=== PATIENT | male | born 1995 | race African-American/Black ===

== ENCOUNTER 2021-07-14 16:53 | Emergency (ER) | payer SELFPAY ==
[~2021-07-14] VITALS: Ht 172.7 cm; Wt 93.0 kg
[2021-07-14] MEDS ORDERED: IBUP-2029 MT (18:49)
[2021-07-14] MEDS ORDERED: IBUPROFEN 600MG TABLET PO ONE (19:00)
[2021-07-14] MEDS ORDERED: HYDROCODONE/ACETAMINOPHEN 10/325MG TABLET PO ONE (19:00)
[2021-07-14 19:04] VITALS: BP 147/83
== END 2021-07-14 19:04 | disposition home or self-care (01) ==
LOC: ER 16:53
DX: R51.9 Headache, unspecified (principal)
CPT/HCPCS: 99283